=== PATIENT | male | born 1950 ===

== ENCOUNTER 2016-12-13 21:26 | Emergency (ER) | payer MEDICARE ==
[2016-12-13 22:39] LABS: RBC URINE 8 /hpf (0-3); URINE BACTERIA RARE (<OCC); URINE BILIRUBIN NEGATIVE (NEGATIVE); URINE BLOOD 2+ (NEGATIVE); URINE COLOR Yellow (YELLOW); URINE GLUCOSE (UA) NORMAL (Normal); URINE KETONE NEGATIVE (NEGATIVE); URINE LEUKOCYTE ESTERASE NEG Leu/uL (Negative); URINE PROTEIN NEGATIVE (NEGATIVE); URINE UROBILINOGEN NORMAL mg/dL (0.2-1.0); WBC URINE 3 /hpf (0-5)
--- NOTE | 2016-12-13 22:58 | C.PDOC ---
History Of Present Illness A 66 year old male presents to the emergency room with complaints of urinary retention for 8 hours. Patient has a history of urinary retention. Patient ran out of Flomax 2 days ago. Patient was lost to follow up with Dr. Jabari Luna (Urology) a few weeks ago. Patient denies any fever, nausea, vomiting , diarrhea, or any other complaints. Time Seen by Provider: 12/13/16 22:28 Chief Complaint (Nursing): Male Genitourinary History Per: Patient History/Exam Limitations: no limitations Onset/Duration Of Symptoms: Hrs (8) Current Symptoms Are (Timing): Still Present Severity: Moderate Associated Symptoms: Urinary Symptoms (Urinary retention). denies: Fever, Nausea, Vomiting, Diarrhea Alleviating Factors: None Recent travel outside of the [place]: No Past Medical History Reviewed: Historical Data, Nursing Documentation, Vital Signs Vital Signs: Last Vital Signs Temp 98.1 F 12/13/16 23:16 Pulse 65 12/13/16 23:16 Resp 18 12/13/16 23:16 BP 136/73 12/13/16 23:16 Pulse Ox 100 12/13/16 23:16 - Medical History PMH: Benign Prostatic Hyperplasia, Diabetes, HTN Surgical History: Appendectomy (in 1965), Hernia Repair (umbilical hernia (12 years ago)) - [employer] Procedures INSERT INDWELLING CATH (02/11/15) Family History: States: Unknown Family Hx - Social History Hx Alcohol Use: Yes Hx Substance Use: No - Immunization History Hx Tetanus Toxoid Vaccination: No Hx Influenza Vaccination: Yes Hx Pneumococcal Vaccination: Yes Review Of Systems Constitutional: Negative for: Fever Gastrointestinal: Negative for: Nausea, Vomiting, Diarrhea Genitourinary: Positive for: Other (Urinary retention) Physical Exam - Physical Exam Appears: In Acute Distress (Moderate distress) Skin: Normal Color, Warm, Dry Head: Atraumatic, Normacephalic Neck: Normal ROM, Supple Cardiovascular: Rhythm Regular Respiratory: Normal Breath Sounds, No Rales, No Rhonchi, No Wheezing Gastrointestinal/Abdominal: Soft, Tenderness (Suprapubic tenderness), Distention , No Guarding, No Rebound Extremity: Normal ROM, No Tenderness Neurological/Psych: Oriented x3, Normal Speech ED Course And Treatment - Laboratory Results Lab Interpretation: Normal (UA neg.) O2 Sat by Pulse Oximetry: 96 Progress Note: jain and leg bag for 800cc's Medical Decision Making Medical Decision Making: recurrent urinary retention Ran out of Flomax 2 wks ago Lost to f/u with Urology Cheryl Disposition Doctor Will See Patient In The: Office Counseled Patient/Family Regarding: Studies Performed, Diagnosis - Disposition Referrals: Jabari Luna MD [Staff Provider] - Disposition: HOME/ ROUTINE Disposition Time: 22:58 Condition: GOOD Additional Instructions: Mantiene la sonda de orina puesto hasta ng visita con el Urologo Isabella el Flomax cada noche Prescriptions: Tamsulosin [Flomax] 0.4 mg PO DAILY #30 cap Instructions: Urinary Retention in Men (ED), Urinary Leg Bag (GEN) Print Language: YI - Clinical Impression Clinical Impression: Urinary retention due to benign prostatic hyperplasia - Scribe Statement The provider has reviewed the documentation as recorded by the Scribe Jacques Oleary All medical record entries made by the Scribe were at my direction and personally dictated by me. I have reviewed the chart and agree that the record accurately reflects my personal performance of the history, physical exam, medical decision making, and the department course for this patient. I have also personally directed, reviewed, and agree with the discharge instructions and disposition.
[2016-12-13 23:37] VITALS: BP 136/73; PULSE 65; RESP 18; TEMP 98.1
[2016-12-14 00:09] VITALS: O2SAT 96
== END 2016-12-13 23:19 | disposition home or self-care (01) ==
LOC: C.ER 21:26
DX: N40.1 Benign prostatic hyperplasia with lower urinary tract symptoms (principal); R33.8 Other retention of urine

== ENCOUNTER 2017-03-17 02:01 | Emergency (ER) | payer MEDICARE ==
[2017-03-17 02:17] VITALS: RESP 18
--- NOTE | 2017-03-17 02:29 | C.PDOC ---
History Of Present Illness Patient presents to the ER with a complaint of urinary retention for the past 3- 5 hours. Patient has a Hx of similar symptoms due to an enlarged prostate. Denies fever or chills. Time Seen by Provider: 03/17/17 02:28 Chief Complaint (Nursing): Male Genitourinary History Per: Patient History/Exam Limitations: no limitations Onset/Duration Of Symptoms: Hrs (3-5) Current Symptoms Are (Timing): Still Present Severity: Moderate Pain Scale Rating Of: 5 Quality Of Discomfort: Unable To Describe Associated Symptoms: Urinary Symptoms (Retention). denies: Fever, Chills Alleviating Factors: None Recent travel outside of the [place]: No Past Medical History Reviewed: Historical Data, Nursing Documentation, Vital Signs Vital Signs: Last Vital Signs Temp 97.3 F L 03/17/17 02:15 Pulse 83 03/17/17 02:15 Resp 18 03/17/17 02:15 BP 155/101 H 03/17/17 02:15 Pulse Ox 97 03/17/17 02:30 - Medical History PMH: Benign Prostatic Hyperplasia, Diabetes, HTN Surgical History: Appendectomy (in 1965), Hernia Repair (umbilical hernia (12 years ago)) - [employer] Procedures INSERT INDWELLING CATH (02/11/15) Family History: States: No Known Family Hx - Social History Hx Alcohol Use: Yes Hx Substance Use: No - Immunization History Hx Tetanus Toxoid Vaccination: No Hx Influenza Vaccination: Yes Hx Pneumococcal Vaccination: Yes Review Of Systems Constitutional: Negative for: Fever, Chills Genitourinary: Positive for: Other (Urinary retention) Physical Exam - Physical Exam Appears: Non-toxic, Other (Moderate distress) Skin: Warm, Dry Oral Mucosa: Moist Chest: Symmetrical, No Tenderness Cardiovascular: Rhythm Regular, No Murmur Respiratory: No Rales, No Rhonchi Gastrointestinal/Abdominal: Tenderness (Suprapubic), Distention (Suprapubic) Male Genital: Other (globus vesicalis) Neurological/Psych: Oriented x3 ED Course And Treatment O2 Sat by Pulse Oximetry: 97 (Room air) Pulse Ox Interpretation: Normal Progress Note: 16 ukrainian jain passed w/o difficulty, patient tolerated it well. 900cc of clear urine collected. Disposition Counseled Patient/Family Regarding: Studies Performed, Diagnosis, Need For Followup - Disposition Referrals: Jabari Luna MD [Staff Provider] - Disposition: HOME/ ROUTINE Disposition Time: 02:28 Condition: FAIR Instructions: Urinary Retention in Men (ED), Jain Catheter Placement and Care (ED), Urinary Leg Bag (GEN) Print Language: ANGOLAN - Clinical Impression Clinical Impression: Urinary retention - Scribe Statement The provider has reviewed the documentation as recorded by the Scribe Krystian Mahoney All medical record entries made by the Christianneibe were at my direction and personally dictated by me. I have reviewed the chart and agree that the record accurately reflects my personal performance of the history, physical exam, medical decision making, and the department course for this patient. I have also personally directed, reviewed, and agree with the discharge instructions and disposition.
[2017-03-17 03:10] VITALS: BP 108/70; PULSE 92; TEMP 98.3; O2SAT 98
== END 2017-03-17 03:05 | disposition home or self-care (01) ==
LOC: C.ER 02:01
DX: R33.9 Retention of urine, unspecified (principal); I10 Essential (primary) hypertension; E11.9 Type 2 diabetes mellitus without complications; N40.0 Benign prostatic hyperplasia without lower urinary tract symptoms

== ENCOUNTER 2017-05-13 21:15 | Emergency (ER) | payer MEDICARE ==
[2017-05-13 21:52] VITALS: RESP 18; O2SAT 98
--- NOTE | 2017-05-13 22:41 | C.PDOC ---
History Of Present Illness A 66 y/o male with a hx of enlarged prostate, c/o urinary retention for the past few hours. Patient was seen by Dr. Luna and needed a biopsy, but needs medical clearance from his PMD. He has had multiple episodes of urinary retension because of his large prostate. Notes this has happen multiple times before. Denies fever, chills, abdominal pain, back pain, or penile discharge. Time Seen by Provider: 05/13/17 22:20 Chief Complaint (Nursing): Male Genitourinary History Per: Patient History/Exam Limitations: no limitations Onset/Duration Of Symptoms: Hrs Current Symptoms Are (Timing): Still Present Severity: Mild Alleviating Factors: None Recent travel outside of the [place]: No Additional History Per: Patient Past Medical History Reviewed: Historical Data, Nursing Documentation, Vital Signs Vital Signs: Last Vital Signs Temp 98.8 F 05/13/17 21:40 Pulse 88 05/13/17 21:40 Resp 18 05/13/17 21:40 BP 176/97 H 05/13/17 21:40 Pulse Ox 98 05/13/17 22:45 - Medical History PMH: Benign Prostatic Hyperplasia, Diabetes, HTN Surgical History: Appendectomy (in 1965), Hernia Repair (umbilical hernia (12 years ago)) - [employer] Procedures INSERT INDWELLING CATH (02/11/15) Family History: States: Unknown Family Hx - Social History Hx Alcohol Use: Yes Hx Substance Use: No - Immunization History Hx Tetanus Toxoid Vaccination: No Hx Influenza Vaccination: Yes Hx Pneumococcal Vaccination: Yes Review Of Systems Except As Marked, All Systems Reviewed And Found Negative. Constitutional: Negative for: Fever, Chills Gastrointestinal: Negative for: Abdominal Pain Genitourinary: Positive for: Incontinence. Negative for: Penile Discharge Musculoskeletal: Negative for: Back Pain Physical Exam - Physical Exam Appears: Non-toxic, No Acute Distress Skin: Warm, Dry Head: Atraumatic, Normacephalic Cardiovascular: Rhythm Regular Respiratory: Normal Breath Sounds, No Rales, No Rhonchi, No Wheezing Gastrointestinal/Abdominal: Soft, No Tenderness Back: Normal Inspection, No CVA Tenderness Male Genital: Other (Cathether placed. Comfortable. A liter of clear urine in a jain bag.) Neurological/Psych: Oriented x3, Normal Speech, Normal Cognition ED Course And Treatment - Laboratory Results Lab Interpretation: Normal (clean urine) O2 Sat by Pulse Oximetry: 98 (RA) Pulse Ox Interpretation: Normal Reevaluation Time: 23:21 Reassessment Condition: Improved (Patient to be discharged with jain and leg bag.) Medical Decision Making Medical Decision Making: Impression: A 66 y/o male with a hx of enlarged prostate, c/o urinary incontinence for the past few hours. Plans: * Urine culture * Jain cath * UA Disposition - Disposition Referrals: Jabari Luna MD [Staff Provider] - Disposition: HOME/ ROUTINE Disposition Time: 23:21 Condition: IMPROVED Prescriptions: Tamsulosin HCl [Flomax] 0.4 mg PO DAILY #30 cap.er.24h Instructions: Urinary Retention in Men (ED) Forms: [facility] [facility] (Stateless) - Clinical Impression Clinical Impression: Urinary retention due to benign prostatic hyperplasia - Scribe Statement The provider has reviewed the documentation as recorded by the Scribe Deisy bernard All medical record entries made by the Scribe were at my direction and personally dictated by me. I have reviewed the chart and agree that the record accurately reflects my personal performance of the history, physical exam, medical decision making, and the department course for this patient. I have also personally directed, reviewed, and agree with the discharge instructions and disposition.
[2017-05-13 23:07] LABS: URINE BILIRUBIN NEGATIVE (NEGATIVE); URINE BLOOD 1+ (NEGATIVE); URINE COLOR Straw (YELLOW); URINE GLUCOSE (UA) NORMAL (Normal); URINE KETONE NEGATIVE (NEGATIVE); URINE LEUKOCYTE ESTERASE NEG Leu/uL (Negative); URINE PROTEIN NEGATIVE (NEGATIVE); URINE UROBILINOGEN NORMAL mg/dL (0.2-1.0); WBC URINE < 1 /hpf (0-5)
[2017-05-13 23:36] VITALS: BP 112/64; PULSE 74; TEMP 98.5
== END 2017-05-13 23:49 | disposition home or self-care (01) ==
LOC: C.ER 21:15
DX: N40.1 Benign prostatic hyperplasia with lower urinary tract symptoms (principal); R33.8 Other retention of urine

== ENCOUNTER 2017-06-25 21:26 | Emergency (ER) | payer MEDICARE ==
--- NOTE | 2017-06-25 22:07 | C.PDOC ---
History Of Present Illness Patient presents to the ER with acute urinary retention and is complaining of sharp, cramping abdominal pain. Patient reports he last voided earlier today; denies fever or chills. Time Seen by Provider: 06/25/17 22:07 Chief Complaint (Nursing): Male Genitourinary History Per: Patient History/Exam Limitations: no limitations Onset/Duration Of Symptoms: Hrs Current Symptoms Are (Timing): Still Present Severity: Mild Pain Scale Rating Of: 4 Quality Of Discomfort: Sharp, Cramping Associated Symptoms: Urinary Symptoms (Retention). denies: Fever, Chills Alleviating Factors: None Recent travel outside of the [place]: No Past Medical History Reviewed: Historical Data, Nursing Documentation, Vital Signs Vital Signs: Last Vital Signs Temp 98 F 06/25/17 22:00 Pulse 83 06/25/17 22:00 Resp 16 06/25/17 22:00 BP 183/104 H 06/25/17 22:00 Pulse Ox 98 06/25/17 22:40 - Medical History PMH: Benign Prostatic Hyperplasia, Diabetes, HTN Surgical History: Appendectomy (in 1965), Hernia Repair (umbilical hernia (12 years ago)) - [employer] Procedures INSERT INDWELLING CATH (02/11/15) Family History: States: No Known Family Hx - Social History Hx Alcohol Use: Yes Hx Substance Use: No - Immunization History Hx Tetanus Toxoid Vaccination: No Hx Influenza Vaccination: Yes Hx Pneumococcal Vaccination: Yes Review Of Systems Constitutional: Negative for: Fever, Chills Gastrointestinal: Positive for: Abdominal Pain Genitourinary: Positive for: Other (Retention) Physical Exam - Physical Exam Appears: Non-toxic Skin: Warm, Dry Head: Normacephalic Oral Mucosa: Moist Chest: Symmetrical Cardiovascular: Rhythm Regular Respiratory: No Rales, No Rhonchi, No Wheezing Gastrointestinal/Abdominal: Soft, Tenderness (Suprapubic), No Guarding, No Rebound, Other (Palpated distended bladder) Neurological/Psych: Oriented x3 ED Course And Treatment O2 Sat by Pulse Oximetry: 98 (Room air) Pulse Ox Interpretation: Normal Progress Note: 16 hebrew jain placed with no difficulty, 900cc of urine collected. Reevaluation Time: 22:52 Reassessment Condition: Improved Disposition Counseled Patient/Family Regarding: Studies Performed, Diagnosis, Need For Followup - Disposition Referrals: Jabari Luna MD [Staff Provider] - Disposition: HOME/ ROUTINE Disposition Time: 22:07 Condition: FAIR Instructions: Urinary Retention in Men (ED), Jain Catheter Placement and Care (ED), Urinary Leg Bag (GEN) Forms: [employer] (Eritrean) Print Language: ROMANSH - Clinical Impression Clinical Impression: Urinary retention - Scribe Statement The provider has reviewed the documentation as recorded by the Scribe Krystian Mahoney All medical record entries made by the Scribe were at my direction and personally dictated by me. I have reviewed the chart and agree that the record accurately reflects my personal performance of the history, physical exam, medical decision making, and the department course for this patient. I have also personally directed, reviewed, and agree with the discharge instructions and disposition.
[2017-06-25 23:44] VITALS: BP 113/65; PULSE 67; RESP 22; TEMP 98.2; O2SAT 97
== END 2017-06-25 23:54 | disposition home or self-care (01) ==
LOC: C.ER 21:26
DX: N40.1 Benign prostatic hyperplasia with lower urinary tract symptoms (principal); R33.8 Other retention of urine; E11.9 Type 2 diabetes mellitus without complications; I10 Essential (primary) hypertension

== ENCOUNTER 2017-07-23 01:01 | Emergency (ER) | payer MEDICARE ==
[2017-07-23 01:29] VITALS: RESP 20
[2017-07-23 01:46] LABS: RBC URINE < 1 /hpf (0-3); URINE BILIRUBIN NEGATIVE (NEGATIVE); URINE BLOOD NEGATIVE (NEGATIVE); URINE COLOR Straw (YELLOW); URINE GLUCOSE (UA) NORMAL (Normal); URINE KETONE NEGATIVE (NEGATIVE); URINE LEUKOCYTE ESTERASE NEG Leu/uL (Negative); URINE PROTEIN NEGATIVE (NEGATIVE); URINE UROBILINOGEN NORMAL mg/dL (0.2-1.0)
[2017-07-23 02:05] VITALS: BP 151/80; PULSE 69; TEMP 98; O2SAT 98
--- NOTE | 2017-07-23 03:34 | C.PDOC ---
History Of Present Illness Patient is a 66 y/o male, with a Hx of PBH, who presents to the ED with a complaint of urinary retention for the last 2-3 days. Patient admits to suprapubic pain. Denies vomiting, dysuria, hematuria, or abdominal pain. No other complaints at this time. Time Seen by Provider: 07/23/17 01:32 Chief Complaint (Nursing): Male Genitourinary History Per: Patient History/Exam Limitations: no limitations Onset/Duration Of Symptoms: Days (2-3 days) Current Symptoms Are (Timing): Still Present Associated Symptoms: denies: Nausea, Vomiting, Urinary Symptoms Recent travel outside of the [place]: No Past Medical History Reviewed: Historical Data, Nursing Documentation, Vital Signs Vital Signs: Last Vital Signs Temp 98 F 07/23/17 02:04 Pulse 69 07/23/17 02:04 Resp 20 07/23/17 02:04 BP 151/80 H 07/23/17 02:04 Pulse Ox 98 07/23/17 03:38 - Medical History PMH: Benign Prostatic Hyperplasia, Diabetes, HTN Surgical History: Appendectomy (in 1965), Hernia Repair (umbilical hernia (12 years ago)) - [employer] Procedures INSERT INDWELLING CATH (02/11/15) Family History: States: Unknown Family Hx - Social History Hx Alcohol Use: Yes Hx Substance Use: No - Immunization History Hx Tetanus Toxoid Vaccination: No Hx Influenza Vaccination: Yes Hx Pneumococcal Vaccination: Yes Review Of Systems Gastrointestinal: Negative for: Vomiting, Abdominal Pain Genitourinary: Negative for: Dysuria, Hematuria Physical Exam - Physical Exam Appears: Well, Non-toxic, No Acute Distress Skin: Normal Color, Warm, Dry Head: Atraumatic, Normacephalic Oral Mucosa: Moist Chest: Symmetrical Cardiovascular: Rhythm Regular, No Murmur Respiratory: Normal Breath Sounds, No Rales, No Rhonchi, No Wheezing Gastrointestinal/Abdominal: Soft, Tenderness (mild suprapubic tenderness) Extremity: Normal ROM Neurological/Psych: Oriented x3, Normal Speech, Normal Cognition ED Course And Treatment O2 Sat by Pulse Oximetry: 98 Progress Note: Plan: Urine C&S ordered. Reassess: patient is discharged and advised to follow up with PMD. Disposition - Disposition Referrals: Michael Amaro, [Non-Staff] - Disposition: HOME/ ROUTINE Disposition Time: 01:50 Condition: IMPROVED Additional Instructions: Thank you for letting us take care of you today. Your provider was Dr. Monterroso. You were treated for urinary retention. The emergency medical care you received today was directed at your acute symptoms. If you were prescribed any medication, please fill it and take as directed. It may take several days for your symptoms to resolve. Return to the Emergency Department if your symptoms worsen, do not improve, or if you have any other problems. Please contact your doctor or call one of the physicians/clinics you have been referred to that are listed on the Patient Visit Information form that is included in your discharge packet. Bring any paperwork you were given at discharge with you along with any medications you are taking to your follow up visit. Our treatment cannot replace ongoing medical care by a primary care provider (PCP) outside of the emergency department. Thank you for allowing the [facility] team to be part of your care today. Follow up with your urologist tomorrow morning for re-evaluation and further management. Instructions: Urinary Retention in Men (ED), Urinary Leg Bag (GEN) Forms: [employer] (Kenyan) - Clinical Impression Clinical Impression: Urinary retention, BPH (benign prostatic hyperplasia) - Scribe Statement The provider has reviewed the documentation as recorded by the Scribe Swathi Ruff All medical record entries made by the Scribe were at my direction and personally dictated by me. I have reviewed the chart and agree that the record accurately reflects my personal performance of the history, physical exam, medical decision making, and the department course for this patient. I have also personally directed, reviewed, and agree with the discharge instructions and disposition.
== END 2017-07-23 02:06 | disposition home or self-care (01) ==
LOC: C.ER 01:01
DX: N40.1 Benign prostatic hyperplasia with lower urinary tract symptoms (principal); R33.8 Other retention of urine

== ENCOUNTER 2017-10-26 06:29 | Emergency (ER) | payer MEDICARE ==
--- NOTE | 2017-10-26 07:20 | C.PDOC ---
History Of Present Illness 67 y/o male with history of BPH presents to ED with complaints of difficulty urinating for 4 hours. Patient states he has had similar episodes in the past and reports he has not taken his Flomax in 4 days. Patient denies fever, dysuria , urinary frequency, testicular pain or any other complaints at this time. Time Seen by Provider: 10/26/17 07:15 Chief Complaint (Nursing): Male Genitourinary History Per: Patient History/Exam Limitations: no limitations Onset/Duration Of Symptoms: Hrs Current Symptoms Are (Timing): Still Present Associated Symptoms: Urinary Symptoms Past Medical History Reviewed: Historical Data, Nursing Documentation, Vital Signs Vital Signs: Last Vital Signs Temp 98.0 F 10/26/17 07:40 Pulse 64 10/26/17 07:40 Resp 18 10/26/17 07:40 BP 135/77 10/26/17 07:40 Pulse Ox 99 10/26/17 09:18 - Medical History PMH: Benign Prostatic Hyperplasia, Diabetes, HTN Surgical History: Appendectomy (in 1965), Hernia Repair (umbilical hernia (12 years ago)) - [employer] Procedures INSERT INDWELLING CATH (02/11/15) Family History: States: No Known Family Hx - Social History Hx Alcohol Use: Yes Hx Substance Use: No - Immunization History Hx Tetanus Toxoid Vaccination: No Hx Influenza Vaccination: No Hx Pneumococcal Vaccination: Yes Review Of Systems Constitutional: Negative for: Fever, Chills Gastrointestinal: Negative for: Vomiting, Abdominal Pain Genitourinary: Positive for: Other (Urinary retention). Negative for: Dysuria, Frequency Musculoskeletal: Negative for: Back Pain Skin: Negative for: Rash Physical Exam - Physical Exam Appears: Well, Non-toxic, No Acute Distress Skin: Warm, Dry, No Rash Head: Atraumatic, Normacephalic Eye(s): bilateral: Normal Inspection, EOMI Nose: Normal Oral Mucosa: Moist Neck: Normal ROM, Supple Chest: Symmetrical Cardiovascular: Rhythm Regular Respiratory: Normal Breath Sounds, No Accessory Muscle Use, No Rales, No Rhonchi , No Wheezing Gastrointestinal/Abdominal: Soft, No Tenderness (Abdomen non tendern or distended. (Bedoya placed prior to examination)), No Guarding, No Rebound Neurological/Psych: Oriented x3 ED Course And Treatment O2 Sat by Pulse Oximetry: 99 (RA) Pulse Ox Interpretation: Normal Progress Note: RN inserted Bedoya 300cc Removed, Leg bag applied and patient instructed to follow up with . Discsused US results and instructed to follow up for repeat UA . Also instructed to restart Flomax. Disposition - Disposition Referrals: Jabari Luna MD [Staff Provider] - Disposition: HOME/ ROUTINE Disposition Time: 07:24 Condition: STABLE Additional Instructions: Drink plenty of fluids. Follow up with your Urologist this week for further evaluation and treatment. Return to the ER if you develop fever, vomiting, abdominal pain, back pain, urine problem, worsening of symptoms or if you have any other concerns. Prescriptions: Ciprofloxacin [Cipro] 1 tab PO BID #14 tab Instructions: Urinary Retention in Men (ED) Forms: [employer] (Chinese) Print Language: SYRIAN - Clinical Impression Clinical Impression: Urinary retention, UTI (urinary tract infection) - PA / BED PLACEMENT COORDINATOR / Resident Statement MD/DO has reviewed & agrees with the documentation as recorded. - Scribe Statement The provider has reviewed the documentation as recorded by the Christianneibluisa Mehta All medical record entries made by the Lizzette were at my direction and personally dictated by me. I have reviewed the chart and agree that the record accurately reflects my personal performance of the history, physical exam, medical decision making, and the department course for this patient. I have also personally directed, reviewed, and agree with the discharge instructions and disposition.
[2017-10-26 07:27] LABS: URINE BACTERIA RARE (<OCC); URINE BILIRUBIN NEGATIVE (NEGATIVE); URINE BLOOD NEGATIVE (NEGATIVE); URINE CLARITY Hazy (Clear); URINE COLOR Yellow (YELLOW); URINE GLUCOSE (UA) 2+ mg/dL (Normal); URINE LEUKOCYTE ESTERASE 3+ Leu/uL (Negative); URINE NITRATE NEGATIVE (NEGATIVE); URINE PROTEIN NEGATIVE (NEGATIVE); URINE UROBILINOGEN NORMAL mg/dL (0.2-1.0)
[2017-10-26 07:41] VITALS: BP 135/77; PULSE 64; RESP 18; TEMP 98
[2017-10-26 09:12] VITALS: O2SAT 99
== END 2017-10-26 07:44 | disposition home or self-care (01) ==
LOC: C.ER 06:29
DX: N39.0 Urinary tract infection, site not specified (principal); R33.9 Retention of urine, unspecified; N40.1 Benign prostatic hyperplasia with lower urinary tract symptoms; E11.9 Type 2 diabetes mellitus without complications; I10 Essential (primary) hypertension

== ENCOUNTER 2017-11-22 23:58 | Emergency (ER) | payer MEDICARE ==
[2017-11-23 00:13] VITALS: RESP 20
--- NOTE | 2017-11-23 01:27 | C.PDOC ---
History Of Present Illness 67 year old male with history of BPH presents to the ED for evaluation of urinary retention. Patient reports that he has been unable to void for the past 3 hours. He has been seen here in the ED several times in the past for the same complaint. Patient reports pressure like pain. No other acute complaints at this time. Time Seen by Provider: 11/23/17 00:23 Chief Complaint (Nursing): Male Genitourinary History Per: Patient History/Exam Limitations: no limitations Onset/Duration Of Symptoms: Hrs Current Symptoms Are (Timing): Still Present Quality Of Discomfort: Pressure Recent travel outside of the [place]: No Past Medical History Reviewed: Historical Data, Nursing Documentation, Vital Signs Vital Signs: Last Vital Signs Temp 97.5 F L 11/23/17 00:10 Pulse 92 H 11/23/17 00:10 Resp 20 11/23/17 00:10 BP 132/95 H 11/23/17 00:10 Pulse Ox 98 11/23/17 01:28 - Medical History PMH: Benign Prostatic Hyperplasia, Diabetes, HTN Surgical History: Appendectomy (in 1965), Hernia Repair (umbilical hernia (12 years ago)) - [facility] Procedures INSERT INDWELLING CATH (02/11/15) Family History: States: Unknown Family Hx - Social History Hx Alcohol Use: Yes Hx Substance Use: No - Immunization History Hx Tetanus Toxoid Vaccination: No Hx Influenza Vaccination: No Hx Pneumococcal Vaccination: Yes Review Of Systems Constitutional: Negative for: Fever, Chills ENT: Negative for: Ear Pain, Throat Pain Cardiovascular: Negative for: Chest Pain Respiratory: Negative for: Cough, Shortness of Breath Gastrointestinal: Positive for: Abdominal Pain. Negative for: Nausea, Vomiting , Diarrhea Genitourinary: Positive for: Other (Urinary retention ) Skin: Negative for: Rash Neurological: Negative for: Headache Physical Exam - Physical Exam Appears: Non-toxic, No Acute Distress Skin: Normal Color, Warm, Dry Head: Atraumatic, Normacephalic Eye(s): bilateral: Normal Inspection Oral Mucosa: Moist Neck: Normal, Normal ROM, Supple Chest: Symmetrical Cardiovascular: Rhythm Regular Respiratory: Normal Breath Sounds Gastrointestinal/Abdominal: Other (Mild distension with suprapubic tenderness, otherwise abdomen nontender ) Back: Normal Inspection Male Genital: Normal Inspection, No Testicular Tenderness, No Testicular Swelling, No Scrotal Swelling Extremity: Normal ROM, No Deformity Neurological/Psych: Oriented x3, Normal Speech ED Course And Treatment O2 Sat by Pulse Oximetry: 98 Progress Note: Bedoya catheter inserted and 950 ccs urine collected. Patient feels much improved. Abdomen now soft, nondistended, nontender. Patient placed in leg bag and advised to follow up with previous . Disposition - Disposition Referrals: PMD, Dr Ojeda [Other] Disposition: HOME/ ROUTINE Disposition Time: 01:27 Condition: STABLE Additional Instructions: Please follow up with Dr Ojeda in 1-2 days Return to ER if abdominal pain, fever, bloody urine or worse Instructions: Urinary Retention (DC) Forms: [employer] (Albanian) Print Language: WOLOF - Clinical Impression Clinical Impression: Acute urinary retention - Scribe Statement The provider has reviewed the documentation as recorded by the Scribe (Eliot Patino) All medical record entries made by the Scribe were at my direction and personally dictated by me. I have reviewed the chart and agree that the record accurately reflects my personal performance of the history, physical exam, medical decision making, and the department course for this patient. I have also personally directed, reviewed, and agree with the discharge instructions and disposition.
[2017-11-23 02:22] VITALS: BP 116/62; PULSE 62; TEMP 97.7
[2017-11-23 04:26] VITALS: O2SAT 98
== END 2017-11-23 02:22 | disposition home or self-care (01) ==
LOC: C.ER 23:58
DX: N40.1 Benign prostatic hyperplasia with lower urinary tract symptoms (principal); R33.8 Other retention of urine; I10 Essential (primary) hypertension; E11.9 Type 2 diabetes mellitus without complications

== ENCOUNTER 2017-12-22 01:02 | Emergency (ER) | payer MEDICARE ==
[2017-12-22 02:40] LABS: URINE BACTERIA MANY (<OCC); URINE BILIRUBIN NEGATIVE (NEGATIVE); URINE CLARITY Hazy (Clear); URINE COLOR Straw (YELLOW); URINE GLUCOSE (UA) NORMAL (Normal); URINE LEUKOCYTE ESTERASE 3+ Leu/uL (Negative); URINE PROTEIN NEGATIVE (NEGATIVE); URINE UROBILINOGEN NORMAL mg/dL (0.2-1.0); WBC CLUMPS FEW /hpf
[2017-12-22 02:41] LABS: URINE BLOOD NEGATIVE (NEGATIVE)
--- NOTE | 2017-12-22 03:03 | C.PDOC ---
History Of Present Illness 67 year old male with a Hx of urinary retention, BPH, and prostate CA presents to the ER with a complaint of urinary retention for the past 2 hours. Patient had a jain catheter which was removed earlier today by his PMD; he notes he was able to dribble a little urine but then was not able to void. He now presents with suprapubic discomfort; but denies hematuria, dysuria, or back pain. Time Seen by Provider: 12/22/17 01:25 Chief Complaint (Nursing): Male Genitourinary History Per: Patient History/Exam Limitations: no limitations Onset/Duration Of Symptoms: Hrs Current Symptoms Are (Timing): Still Present Quality Of Discomfort: Unable To Describe Associated Symptoms: Urinary Symptoms (Retention) Alleviating Factors: None Recent travel outside of the [place]: No Past Medical History Reviewed: Historical Data, Nursing Documentation, Vital Signs Vital Signs: Last Vital Signs Temp 98.1 F 12/22/17 04:06 Pulse 65 12/22/17 04:06 Resp 18 12/22/17 04:06 BP 107/62 12/22/17 04:06 Pulse Ox 99 12/22/17 04:06 - Medical History PMH: Benign Prostatic Hyperplasia, Diabetes, HTN Surgical History: Appendectomy (in 1965), Hernia Repair (umbilical hernia (12 years ago)) - [employer] Procedures INSERT INDWELLING CATH (02/11/15) Family History: States: Unknown Family Hx - Social History Hx Alcohol Use: Yes Hx Substance Use: No - Immunization History Hx Tetanus Toxoid Vaccination: No Hx Influenza Vaccination: No Hx Pneumococcal Vaccination: Yes Review Of Systems Constitutional: Negative for: Fever, Chills Cardiovascular: Negative for: Chest Pain, Palpitations Respiratory: Negative for: Cough, Shortness of Breath Gastrointestinal: Positive for: Abdominal Pain Genitourinary: Positive for: Other (Urinary retention). Negative for: Dysuria, Hematuria Physical Exam - Physical Exam Appears: Non-toxic, No Acute Distress Skin: Normal Color, Warm, Dry Head: Atraumatic, Normacephalic Eye(s): bilateral: Normal Inspection Oral Mucosa: Moist Gastrointestinal/Abdominal: Soft, No Tenderness, Distention (suprapubic with tenderness) Back: No CVA Tenderness Male Genital: Normal Inspection Neurological/Psych: Oriented x3, Normal Speech ED Course And Treatment O2 Sat by Pulse Oximetry: 97 (Room air) Pulse Ox Interpretation: Normal Progress Note: Jain catheter inserted with 700ml of urine collected. UA reviewed 3+ leuk esterase and 49 wbc with clumps. Pt was started on cipro and leg bag placed. BP has improved and patient will be discharged home with jain bag and cipro and and instructions to follow up with his PMD. Return precautions given Disposition - Disposition Referrals: Bill Lee MD [Medical Doctor] - Disposition: HOME/ ROUTINE Disposition Time: 03:41 Condition: STABLE Additional Instructions: Please take cipro as directed Follow up with your urologist tomorrow - Dr Ojeda Return to ER if worse Prescriptions: Ciprofloxacin [Cipro] 1 tab PO BID #14 tab Instructions: Urinary Retention (DC) Forms: [employer] (Malian) - Clinical Impression Clinical Impression: Urinary retention - PA / NEUROLOGICAL SURGEON / Resident Statement MD/DO has reviewed & agrees with the documentation as recorded. - Scribe Statement The provider has reviewed the documentation as recorded by the Scribe Krystian Mahoney All medical record entries made by the Scribe were at my direction and personally dictated by me. I have reviewed the chart and agree that the record accurately reflects my personal performance of the history, physical exam, medical decision making, and the department course for this patient. I have also personally directed, reviewed, and agree with the discharge instructions and disposition.
[2017-12-22 04:07] VITALS: BP 107/62; PULSE 65; RESP 18; TEMP 98.1
[2017-12-22 05:44] VITALS: O2SAT 97
== END 2017-12-22 04:09 | disposition home or self-care (01) ==
LOC: C.ER 01:02
DX: N40.1 Benign prostatic hyperplasia with lower urinary tract symptoms (principal); R33.8 Other retention of urine

== ENCOUNTER 2018-01-21 12:30 | Emergency (ER) | payer MEDICARE ==
[2018-01-21 12:39] VITALS: O2SAT 96
[2018-01-21 14:14] LABS: URINE BACTERIA RARE (<OCC); URINE BILIRUBIN NEGATIVE (NEGATIVE); URINE BLOOD NEGATIVE (NEGATIVE); URINE CLARITY Clear (Clear); URINE COLOR Straw (YELLOW); URINE GLUCOSE (UA) NORMAL (Normal); URINE LEUKOCYTE ESTERASE TRACE Leu/uL (Negative); URINE PROTEIN NEGATIVE (NEGATIVE); URINE UROBILINOGEN NORMAL mg/dL (0.2-1.0)
--- NOTE | 2018-01-21 14:31 | C.PDOC ---
History Of Present Illness Pt c/o inability to urinate. He states his jain catheter was removed yesterday. Then he started having some trouble urinating which got worse today. Time Seen by Provider: 01/21/18 13:25 Chief Complaint (Nursing): Male Genitourinary History Per: Patient Onset/Duration Of Symptoms: Hrs (2) Current Symptoms Are (Timing): Still Present Severity: Moderate Quality Of Discomfort: Other (Unable to urinate) Associated Symptoms: Urinary Symptoms Alleviating Factors: None Additional History Per: Prior Records Past Medical History Reviewed: Historical Data, Nursing Documentation, Vital Signs Vital Signs: Last Vital Signs Temp 99 F 01/21/18 12:37 Pulse 82 01/21/18 12:37 Resp 20 01/21/18 12:37 BP 164/90 H 01/21/18 12:37 Pulse Ox 96 01/21/18 12:37 - Medical History PMH: Benign Prostatic Hyperplasia, Diabetes, HTN Surgical History: Appendectomy (in 1965), Hernia Repair (umbilical hernia (12 years ago)) - [facility] Procedures INSERT INDWELLING CATH (02/11/15) Family History: States: Unknown Family Hx - Social History Hx Alcohol Use: Yes Hx Substance Use: No - Immunization History Hx Tetanus Toxoid Vaccination: No Hx Influenza Vaccination: No Hx Pneumococcal Vaccination: Yes Review Of Systems Except As Marked, All Systems Reviewed And Found Negative. Constitutional: Negative for: Fever, Weakness Cardiovascular: Negative for: Chest Pain Respiratory: Negative for: Shortness of Breath Gastrointestinal: Negative for: Vomiting, Abdominal Pain Genitourinary: Negative for: Scrotal Pain Musculoskeletal: Negative for: Neck Pain, Back Pain Skin: Negative for: Rash Neurological: Negative for: Weakness, Numbness Physical Exam - Physical Exam Appears: Non-toxic, No Acute Distress Skin: Normal Color, Warm, Dry, No Rash Head: Atraumatic, Normacephalic Eye(s): bilateral: Normal Inspection, PERRL, EOMI Neck: Normal ROM, Supple Cardiovascular: Rhythm Regular Respiratory: Normal Breath Sounds, No Accessory Muscle Use Gastrointestinal/Abdominal: Soft, No Tenderness (after RN placed jain catheter) Back: No CVA Tenderness Male Genital: No Testicular Tenderness, No Testicular Swelling, No Scrotal Swelling Extremity: Normal ROM, No Pedal Edema Neurological/Psych: Oriented x3, Normal Motor, Normal Sensation ED Course And Treatment O2 Sat by Pulse Oximetry: 96 Pulse Ox Interpretation: Normal Progress Note: Pt had relief of symptoms after RN placed a jain catheter with return of 350cc of yellow urine. Reassessment Condition: Improved Disposition Counseled Patient/Family Regarding: Studies Performed, Diagnosis, Need For Followup, Rx Given - Disposition Referrals: Jabari Luna MD [Staff Provider] - Disposition: HOME/ ROUTINE Disposition Time: 14:33 Condition: IMPROVED Additional Instructions: Follow up with your urologist within 1 week for further evaluation and treatment. Return to the ER if you develop fever, chills, abdominal pain, back pain, urine is not coming out, worsening of symptoms or if you have any other concerns. Prescriptions: Ciprofloxacin [Cipro] 1 tab PO BID #14 tab Instructions: How to Care for Your Jain Catheter, Male Forms: [employer] (Colombian) Print Language: CHINESE - Clinical Impression Clinical Impression: Urinary retention
[2018-01-21 15:05] VITALS: BP 144/82; PULSE 70; RESP 14; TEMP 98.5
== END 2018-01-21 15:05 | disposition home or self-care (01) ==
LOC: C.ER 12:30
DX: R33.9 Retention of urine, unspecified (principal)

== ENCOUNTER 2018-02-09 22:13 | Emergency (ER) | payer MEDICARE ==
--- NOTE | 2018-02-09 23:31 | C.PDOC ---
History Of Present Illness 67 year old male presents to the ED c/o trouble urinating. Patient reports he had a jain removed by Dr. Luna today and since after he has not been able to urinate. Patient denies fever, chills, nausea, vomit, diarrhea, back pain. Time Seen by Provider: 02/09/18 22:33 Chief Complaint (Nursing): Male Genitourinary History Per: Patient History/Exam Limitations: no limitations Onset/Duration Of Symptoms: Days Current Symptoms Are (Timing): Still Present Quality Of Discomfort: "Pain" Associated Symptoms: Urinary Symptoms Alleviating Factors: None Recent travel outside of the [place]: No Additional History Per: Patient Past Medical History Reviewed: Historical Data, Nursing Documentation, Vital Signs Vital Signs: Last Vital Signs Temp 98.0 F 02/10/18 01:08 Pulse 58 L 02/10/18 01:08 Resp 18 02/10/18 01:08 BP 149/81 02/10/18 01:08 Pulse Ox 99 02/10/18 01:08 - Medical History PMH: Benign Prostatic Hyperplasia, Diabetes, HTN Denies: Chronic Kidney Disease Surgical History: Appendectomy (in 1965), Hernia Repair (umbilical hernia (12 years ago)) - [facility] Procedures INSERT INDWELLING CATH (02/11/15) Family History: States: Unknown Family Hx - Social History Hx Alcohol Use: No Hx Substance Use: No - Immunization History Hx Tetanus Toxoid Vaccination: No Hx Influenza Vaccination: No Hx Pneumococcal Vaccination: No Review Of Systems Constitutional: Negative for: Fever, Chills Cardiovascular: Negative for: Chest Pain, Palpitations Respiratory: Negative for: Shortness of Breath Skin: Negative for: Rash Neurological: Negative for: Weakness, Numbness Physical Exam - Physical Exam Appears: Non-toxic, No Acute Distress Skin: Normal Color, Warm, Dry Head: Atraumatic, Normacephalic Eye(s): bilateral: Normal Inspection Nose: No Discharge Oral Mucosa: Moist Neck: Normal ROM, Supple Chest: Symmetrical Cardiovascular: Rhythm Regular, No Murmur Respiratory: Normal Breath Sounds, No Rales, No Rhonchi, No Wheezing Gastrointestinal/Abdominal: Soft, No Tenderness, No Guarding, No Rebound Back: No CVA Tenderness Extremity: Normal ROM Neurological/Psych: Oriented x3, Normal Speech, Normal Cognition Gait: Steady ED Course And Treatment O2 Sat by Pulse Oximetry: 98 (ON RA) Pulse Ox Interpretation: Normal Disposition Discussed With : Jabari Luna Doctor Will See Patient In The: Office Counseled Patient/Family Regarding: Diagnosis - Disposition Referrals: Jabari Luna MD [Staff Provider] - Disposition: HOME/ ROUTINE Disposition Time: 00:00 Condition: IMPROVED Instructions: How to Care for Your Jain Catheter, Male, Jain Catheter, Male, Urinary Retention (DC) Forms: [facility] (Togolese), Gen Discharge Inst [place]raltarian Print Language: SERBIAN - POA Present On Arrival: None - Clinical Impression Clinical Impression: Acute urinary retention - Scribe Statement The provider has reviewed the documentation as recorded by the Scribe Diallo Rangel All medical record entries made by the Scribe were at my direction and personally dictated by me. I have reviewed the chart and agree that the record accurately reflects my personal performance of the history, physical exam, medical decision making, and the department course for this patient. I have also personally directed, reviewed, and agree with the discharge instructions and disposition.
[2018-02-10 01:10] VITALS: BP 149/81; PULSE 58; RESP 18; TEMP 98
[2018-02-10 01:19] VITALS: O2SAT 98
== END 2018-02-10 01:11 | disposition home or self-care (01) ==
LOC: C.ER 22:13
DX: N40.1 Benign prostatic hyperplasia with lower urinary tract symptoms (principal); R33.8 Other retention of urine

== ENCOUNTER 2018-03-09 15:33 | Emergency (ER) | payer MEDICARE ==
--- NOTE | 2018-03-09 16:54 | C.PDOC ---
History Of Present Illness Pt states that his Bedoya catheter was removed by his Urologist today. Pt c/o inability to urinate after the catheter was removed. Time Seen by Provider: 03/09/18 16:19 Chief Complaint (Nursing): Male Genitourinary History Per: Patient Onset/Duration Of Symptoms: Hrs (4) Current Symptoms Are (Timing): Still Present Severity: Moderate Associated Symptoms: Urinary Symptoms Alleviating Factors: None Additional History Per: Prior Records Past Medical History Reviewed: Historical Data, Nursing Documentation, Vital Signs Vital Signs: Last Vital Signs Temp 99.1 F 03/09/18 15:44 Pulse 67 03/09/18 15:44 Resp 20 03/09/18 15:44 BP 132/81 03/09/18 15:44 Pulse Ox 96 03/09/18 16:54 - Medical History PMH: Benign Prostatic Hyperplasia, Diabetes, HTN Surgical History: Appendectomy (in 1965), Hernia Repair (umbilical hernia (12 years ago)) - [employer] Procedures INSERT INDWELLING CATH (02/11/15) Family History: States: Unknown Family Hx - Social History Hx Alcohol Use: No Hx Substance Use: No - Immunization History Hx Tetanus Toxoid Vaccination: No Hx Influenza Vaccination: No Hx Pneumococcal Vaccination: No Review Of Systems Except As Marked, All Systems Reviewed And Found Negative. Constitutional: Negative for: Fever, Weakness Cardiovascular: Negative for: Chest Pain Respiratory: Negative for: Shortness of Breath Gastrointestinal: Positive for: Abdominal Pain (suprapubic). Negative for: Vomiting Genitourinary: Negative for: Hematuria, Penile Discharge, Scrotal Pain Musculoskeletal: Negative for: Neck Pain Skin: Negative for: Rash Neurological: Negative for: Weakness, Numbness Physical Exam - Physical Exam Appears: Non-toxic, No Acute Distress, Other (Uncomfortable) Skin: Normal Color, Warm, Dry, No Rash Head: Atraumatic, Normacephalic Eye(s): bilateral: Normal Inspection, PERRL, EOMI Neck: Normal ROM, Supple Cardiovascular: Rhythm Regular Respiratory: Normal Breath Sounds, No Accessory Muscle Use Gastrointestinal/Abdominal: Soft, Distention (of urinary bladder) Back: No CVA Tenderness Male Genital: No Testicular Tenderness, No Testicular Swelling, No Scrotal Swelling Extremity: Normal ROM, No Pedal Edema Neurological/Psych: Oriented x3, Normal Motor, Normal Sensation ED Course And Treatment O2 Sat by Pulse Oximetry: 96 Pulse Ox Interpretation: Normal Progress Note: Symptoms resolved after Bedoya catheter placement by RN. Pt states that his Urologist prescribed him an antibiotic today. Reassessment Condition: Improved Disposition Counseled Patient/Family Regarding: Studies Performed, Diagnosis, Need For Followup - Disposition Referrals: Jabari Luna MD [Staff Provider] - Disposition: HOME/ ROUTINE Disposition Time: 17:15 Condition: IMPROVED Additional Instructions: Follow up with your doctor for further evaluation and treatment. Return to the ER if you develop fever, chills, abdominal pain, back pain, trouble with urine, worsening of symptoms or if you have any other concerns. Instructions: Urinary Retention (DC) Forms: [employer] (Greenlandic) - Clinical Impression Clinical Impression: Acute urinary retention, UTI (urinary tract infection)
[2018-03-09 17:03] LABS: SQUAMOUS EPITHIAL < 1 /hpf (0-5); URINE BACTERIA OCC (<OCC); URINE BILIRUBIN NEGATIVE (NEGATIVE); URINE BLOOD NEGATIVE (NEGATIVE); URINE CLARITY Hazy (Clear); URINE COLOR Yellow (YELLOW); URINE GLUCOSE (UA) NORMAL (Normal); URINE LEUKOCYTE ESTERASE 2+ Leu/uL (Negative); URINE PROTEIN NEGATIVE (NEGATIVE); URINE UROBILINOGEN NORMAL mg/dL (0.2-1.0)
[2018-03-09 17:33] VITALS: BP 136/74; PULSE 78; RESP 18; TEMP 98; O2SAT 98
== END 2018-03-09 17:32 | disposition home or self-care (01) ==
LOC: C.ER 15:33
DX: N40.1 Benign prostatic hyperplasia with lower urinary tract symptoms (principal); R33.8 Other retention of urine

== ENCOUNTER 2018-04-28 06:02 | Emergency (ER) | payer MEDICARE ==
[2018-04-28 06:17] VITALS: BP 175/91; RESP 16; TEMP 98.6
--- NOTE | 2018-04-28 06:19 | C.PDOC ---
History Of Present Illness 67 year old male presents to the ED c/o acute urinary retention. Patient last voided at around 02:00- 03:00 am. Patient also c/o sharp crampy abdominal pain. Patient recently had jain catheter removed the day before. Patient denies fever , chills, nausea, vomit, diarrhea, back pain. Time Seen by Provider: 04/28/18 06:18 Chief Complaint (Nursing): Male Genitourinary History Per: Patient History/Exam Limitations: no limitations Onset/Duration Of Symptoms: Hrs Current Symptoms Are (Timing): Still Present Severity: Mild Quality Of Discomfort: Sharp, Stabbing Associated Symptoms: Urinary Symptoms Alleviating Factors: None Recent travel outside of the [place]: No Additional History Per: Patient Past Medical History Reviewed: Historical Data, Nursing Documentation, Vital Signs Vital Signs: Last Vital Signs Temp 98.6 F 04/28/18 06:11 Pulse 62 04/28/18 06:11 Resp 16 04/28/18 06:11 BP 175/91 H 04/28/18 06:11 Pulse Ox 98 04/28/18 06:19 - Medical History PMH: Benign Prostatic Hyperplasia, Diabetes, HTN Denies: Chronic Kidney Disease Surgical History: Appendectomy (in 1965), Hernia Repair (umbilical hernia (12 years ago)) - [employer] Procedures INSERT INDWELLING CATH (02/11/15) Family History: States: Unknown Family Hx - Social History Hx Alcohol Use: Yes Hx Substance Use: No - Immunization History Hx Tetanus Toxoid Vaccination: No Hx Influenza Vaccination: No Hx Pneumococcal Vaccination: Yes Review Of Systems Constitutional: Negative for: Fever, Chills Cardiovascular: Negative for: Chest Pain, Palpitations Respiratory: Negative for: Shortness of Breath Gastrointestinal: Positive for: Abdominal Pain. Negative for: Nausea, Vomiting Genitourinary: Positive for: Other (retention) Musculoskeletal: Negative for: Back Pain Skin: Negative for: Rash Physical Exam - Physical Exam Appears: Non-toxic, No Acute Distress Skin: Warm, Dry Head: Normacephalic Eye(s): bilateral: Normal Inspection Oral Mucosa: Moist Neck: Supple Chest: Symmetrical Cardiovascular: Rhythm Regular Respiratory: No Rales, No Rhonchi, No Wheezing Gastrointestinal/Abdominal: Soft, Tenderness (suprapubic), No Guarding, No Rebound Back: No CVA Tenderness Extremity: No Tenderness, No Swelling Extremity: Bilateral: Atraumatic, Normal Color And Temperature, Normal ROM Neurological/Psych: Oriented x3, Normal Speech Gait: Steady ED Course And Treatment O2 Sat by Pulse Oximetry: 98 (ON RA) Pulse Ox Interpretation: Normal Progress Note: 18 lao jain placed with 600 cc of clear urine drained. Patient states feeling better. Disposition Counseled Patient/Family Regarding: Studies Performed, Diagnosis, Need For Followup - Disposition Referrals: Jabari Luna MD [Staff Provider] - Disposition: HOME/ ROUTINE Disposition Time: 06:19 Condition: FAIR Instructions: How to Care for Your Jain Catheter, Male, Urinary Retention (DC) Forms: [employer] (Lao) Print Language: DUTCH - Clinical Impression Clinical Impression: Urinary retention - Scribe Statement The provider has reviewed the documentation as recorded by the Scribe Diallo Rangel All medical record entries made by the Scribe were at my direction and personally dictated by me. I have reviewed the chart and agree that the record accurately reflects my personal performance of the history, physical exam, medical decision making, and the department course for this patient. I have also personally directed, reviewed, and agree with the discharge instructions and disposition.
[2018-04-28 06:41] VITALS: PULSE 67; O2SAT 100
== END 2018-04-28 06:41 | disposition home or self-care (01) ==
LOC: C.ER 06:02
DX: N40.1 Benign prostatic hyperplasia with lower urinary tract symptoms (principal); R33.8 Other retention of urine

== ENCOUNTER 2018-10-11 08:51 | Outpatient (CLI) | payer MEDICARE | END 2018-10-11 08:52 | disposition home or self-care (01) | LOC: C.RADH 08:51 ==